=== PATIENT | male | born 1955 | race Caucasian/White ===

== ENCOUNTER → 2024-06-01 09:23 | Outpatient (CLI) | payer MEDICARE, SELFPAY ==
[2024-06-01 19:28] LABS: Add Manual Diff / Slide Review NO; Basophils Absolute Auto 100 /uL (0-100); Basophils Percent Auto 0.8 % (0-2); Eosinophils Absolute Auto 200 /uL (0-450); Eosinophils Percent Auto 2.6 % (2-4); Hematocrit 43.2 % (41-53); Hemoglobin 14.8 g/dL (13.5-17.5); Lymphocytes Absolute Auto 2700 /uL (1100-4500); Lymphocytes Percent Auto 34.2 % (25-40); Mean Corpuscular HGB Conc 34.2 % (30-36); Mean Corpuscular Hemoglobin 31.6 PG (26-34); Mean Corpuscular Volume 92.3 fL (80-100); Monocytes Absolute Auto 800 /uL (0-900); Monocytes Percent Auto 10.3 % (3-14); Neutrophils Absolute Auto 4100 /uL (1500-7000); Neutrophils Percent Auto 52.1 % (50-75); Platelet Count 232 X10^3/uL (150-400); Red Blood Cell Count 4.68 X10^6/uL (4.5-5.9); Red Cell Distribution Width 14.3 % (11.6-14.8); White Blood Cell Count 7.8 X10^3/uL (4.5-11.0)
[2024-06-01 19:38] LABS: Alanine Aminotransferase 31 IU/L (<50); Albumin 4.4 g/dL (3.5-5.0); Albumin Globulin Ratio 1.7 (1.0-2.8); Alkaline Phosphatase 85 U/L (38-126); Aspartate Aminotransferase 35 IU/L (17-59); BUN Creatinine Ratio 16.2 (6-22); Bilirubin Total 0.7 mg/dL (0.2-1.3); Blood Urea Nitrogen 16 mg/dL (9-20); Calcium 9.3 mg/dL (8.4-10.2); Carbon Dioxide 26 mmol/L (22-32); Chloride 104 mmol/L (98-107); Cholesterol 248 mg/dL (140-199); Estimated Glomerular Filt Rate > 60 mL/min (>60); Globulin 2.6 g/dL (1.7-4.1); Glucose 101 mg/dL (80-110); HDL Cholesterol 54 mg/dL (40-60); HEMOLYSIS < 15 (0-50); LDL Cholesterol Calculated 171 mg/dL (<100); Sodium 139 mmol/L (137-145); Triglycerides 117 mg/dL (35-150)
[2024-06-01 20:06] LABS: TSH w/ Reflex to FT4 7.83 uIU/mL (0.47-4.68)
[2024-06-01 20:07] LABS: Prostate Specific Antigen Scrn 1.28 ng/mL (0.1-4.0)
[2024-06-01 20:33] LABS: Free T4, Direct Thyroxine 0.76 ng/dL (0.78-2.19)
[2024-06-01 20:36] LABS: Potassium 4.6 mmol/L (3.4-5.1)
[2024-06-02 17:26] LABS: Hepatitis B Surface Antigen NEGATIVE s/c (NEGATIVE)
[2024-06-02 17:44] LABS: Hep C Virus Ab w/Reflex Quant NEGATIVE s/c (NEGATIVE)
== END ==
PROVIDERS: PCP Physician Assistant; Visit Provider Physician Assistant
DX: I10 Essential (primary) hypertension (principal); R01.1 Cardiac murmur, unspecified; Z13.6 Encounter for screening for cardiovascular disorders; Z12.5 Encounter for screening for malignant neoplasm of prostate; R03.0 Elevated blood-pressure reading, without diagnosis of hypertension; Z11.59 Encounter for screening for other viral diseases; Z78.9 Other specified health status
CPT/HCPCS: 80053; 80061; 84439; 84443; 85025; 86803; 87340; G0103

== ENCOUNTER → 2024-06-20 08:55 | Outpatient (CLI) | payer MEDICARE, SELFPAY ==
--- NOTE | 2024-06-20 08:57 | DI.US.S_ITS ---
PROCEDURE: US ABD AORTA ANEURYSM SCREEN INDICATIONS: AAA screening TECHNIQUE: Real time scanning was performed of the aorta and iliac arteries, with image documentation. COMPARISON: None. FINDINGS: Aorta: Proximal aortic diameter measures 2.7 cm. Mid-aorta measures 2.3 cm. Distal aortic diameter is 1.8 cm. Iliac arteries: Right common iliac artery measures 1.1 cm. Left common iliac artery measures 1.2 cm. IMPRESSION: No evidence of aortic aneurysm. Mild ectasia of the proximal aorta, recommend 5 year follow-up ultrasound. Dictated by: Bethel Liu M.D. on 06/20/2024 at 13:56 Approved by: Bethel Liu M.D. on 06/20/2024 at 13:56
--- NOTE | 2024-06-20 08:57 | DI.ECHO.S_ITS ---
[facility] : : [address] : : [place] : : [id number] : : Phone: [phone] Echocardiogram Report + + :Name: ALIZA FIORE Study Date: 06/20/2024 Height: 72 in : :[facility] ReadingLocation: Weight: 210 lb : : Gender: Male BSA: 2.2 m2 : :: 1955 Age: 68 yrs BP: 154/73 mmHg: :Reason For Study: HEART MURMUR : :Ordering Physician: RENARD GOOD Performed By: Aide Jackson : :Referring: RENARD GOOD : + + Interpretation Summary The left ventricle is mild-moderately dilated. The ejection fraction is estimated to be 60-65%. A bicuspid aortic valve cannot be excluded. The aortic valve is moderately calcified. The peak aortic velocity is 4.03 m/sec. There is moderate to severe aortic regurgitation. The ascending aorta is moderately enlarged. The aortic arch is moderately enlarged. Cardiology consultation is recommended. Procedure: A two-dimensional transthoracic echocardiogram with color flow and Doppler was performed. The study quality was technically adequate. There is no prior echocardiogram noted for this patient. The patient was in sinus bradycardia with heart rates between 52-61 bpm during the exam. Left Ventricle: The left ventricle is mild-moderately dilated. The estimated left ventricular end diastolic volume is 180 ml. Left ventricular volume indexed to BSA of 82.6ml/m2. There is normal left ventricular wall thickness. The ejection fraction is estimated to be 60-65%. There are no focal wall motion abnormalities. Diastolic function could not be accurately assessed due to confounding valvular disease. Right Ventricle: The right ventricle is normal in size and function. Atria: The left atrial size is normal. Right atrial size is normal. There is no Doppler evidence for an interatrial shunt. Mitral Valve: The mitral valve leaflets appear borderline thickened, but open well. There is no mitral regurgitation noted. Aortic Valve: A bicuspid aortic valve cannot be excluded. The aortic valve is moderately calcified. The peak aortic velocity is 4.03 m/sec. The aortic valve mean gradient is 36 mmHg. The calculated aortic valve area is 1.3 cm2. Aortic velocity ratio of 0.30. There is moderate to severe aortic regurgitation. Tricuspid Valve: The tricuspid valve leaflets are thin and pliable. There is trace tricuspid regurgitation. Pulmonary artery pressures cannot be estimated because of the lack of a measurable TR jet velocity. Pulmonic Valve: The pulmonic valve leaflets are thin and pliable; valve motion is normal. There is no pulmonic valvular regurgitation. Great Vessels: The aortic root is mildly dilated. The ascending aorta is moderately enlarged. The aortic arch is moderately enlarged. The IVC is of normal diameter and collapses greater than 50% with a sniff. This suggests a low right atrial pressure of 3 mm Hg. Pericardium/ Pleura There is no pericardial effusion. There is no pleural effusion. MMode/2D Measurements & Calculations LVIDd: 6.2 cm LVOT diam: 2.4 cm LVIDs: 3.9 cm Ao root diam: 4.6 cm FS: 36.7 % asc Aorta Diam: 4.3 cm EPSS: 0.97 cm Ao Arch Diam (Prox Trans): 4.2 cm IVSd: 0.81 cm LVPWd: 0.84 cm LV jones. diameter/BSA (cm/m^2): 2.8 LV sys. diameter/BSA (cm/m^2): 1.8 LA A2 area: 20.8 cm2 RA long axis: 5.5 cm LA A4 area: 15.3 cm2 RA area: 13.4 cm2 LA length (vol): 4.6 cm RA vol: 27.7 ml LA vol: 59.0 ml RA : 12.7 ml/m2 LA vol index: 27.1 ml/m2 IVC diam: 1.6 cm RVD1 (basal): 3.4 cm RVD2 (mid): 3.0 cm TAPSE: 1.9 cm Doppler Measurements & Calculations Ao V2 max: 403.1 cm/sec LVOT Max Son: 119.7 cm/sec Ao V2 mean: 278.5 cm/sec LV V1 max P.7 mmHg Ao max P.0 mmHg LV V1 VTI: 28.3 cm Ao mean P.8 mmHg PONCE(I,D): 1.3 cm2 Ao V2 VTI: 94.1 cm PONCE(V,D): 1.3 cm2 sev ratio: 0.30 PONCE indexed to BSA (cm^2/m^2): 0.61 AI P1/2t: 618.0 msec AI dec slope: 235.7 cm/sec2 MV E max son: 42.8 cm/sec PA V2 max: 96.0 cm/sec MV A max son: 58.1 cm/sec PA V2 mean: 66.5 cm/sec MV E/A: 0.74 PA mean P.0 mmHg Med Peak E' Son: 3.1 cm/sec PA pr(Accel): 13.9 mmHg E/E' med: 13.8 Lat Peak E' Son: 6.6 cm/sec E/E' lat: 6.4 E/e' average: 10.1 MV dec time: 0.45 sec SV(LVOT): 125.8 ml Electronically signed by: Mac Perez on Reading Physician:06/20/2024 10:58 AM
== END ==
PROVIDERS: PCP Physician Assistant; Referring Provider Physician Assistant; Visit Provider Physician Assistant
DX: Z13.6 Encounter for screening for cardiovascular disorders (principal); I35.1 Nonrheumatic aortic (valve) insufficiency; I77.810 Thoracic aortic ectasia; I77.89 Other specified disorders of arteries and arterioles; R00.1 Bradycardia, unspecified; R01.1 Cardiac murmur, unspecified
CPT/HCPCS: 76706; 93306

== ENCOUNTER → 2024-06-29 13:01 | Outpatient (CLI) | payer MEDICARE, SELFPAY ==
[2024-06-29 20:02] LABS: Free T3, Triiodothyronine Free 3.53 pg/mL (2.77-5.27)
[2024-06-29 20:16] LABS: TSH w/ Reflex to FT4 4.35 uIU/mL (0.47-4.68)
== END ==
PROVIDERS: PCP Physician Assistant; Visit Provider Physician Assistant
DX: R94.6 Abnormal results of thyroid function studies (principal)
CPT/HCPCS: 84443; 84481